=== PATIENT | male | born 1990 | race Two or more races ===

== ENCOUNTER 2023-06-26 10:10 | Day surgery (SDC) | payer BC ==
[2023-06-25 10:13] LABS: Urine WBC None Seen /hpf (0 - 3)
[2023-06-25 10:28] LABS: Basophils # (auto) 0 10 ^3/uL (0-0.2); Basophils % (auto) 0.6 % (0.0-2.0); Eosinophils # (auto) 0.2 10 ^3/uL (0-0.8); Eosinophils % (auto) 3.4 % (0.0-7.0); Hemoglobin 16.1 g/dL (13.5-17.5); Lymphocytes # (auto) 2.2 10 ^3/uL (0.4-5.4); Lymphocytes % (auto) 38.2 % (10.0-50.0); Mean Corpuscular Hemoglobin 30.5 pg (28.0-32.0); Mean Corpuscular Hgb Conc. 33.5 g/dL (32.0-36.0); Monocytes # (auto) 0.7 10 ^3/uL (0-1.3); Monocytes % (auto) 11.9 % (0.0-12.0); Neutrophils # (auto) 2.7 10 ^3/uL (1.6-8.6); Neutrophils % (auto) 45.9 % (37.0-80.0); Nucleated Red Blood Cells % 0.1 %; Red Blood Cells 5.27 10^6/uL (4.5-5.90); Red Cell Distribution Width 12.9 % (11.8-14.3); White Blood Cell 5.9 10^3/uL (4.4-10.8)
[2023-06-25 10:44] LABS: INR 1.09 (0.9-1.15); Partial Thromboplastin Time 30.4 SEC (24.5-34.5); Prothrombin Time 11.4 sec (9.3-11.8)
[2023-06-25 10:46] LABS: Urine Bacteria NONE SEEN /hpf (None Seen); Urine Blood Negative /uL (Negative); Urine Clarity Clear (Clear); Urine Protein, UAD Negative (Negative); Urine Specific Gravity 1.021 (1.001-1.035); Urine Urobilinogen Normal (Negative)
[2023-06-25 10:53] LABS: Urine Color Straw (Yellow)
[2023-06-25 10:56] LABS: Alanine Aminotransferase 36 U/L (7-40); Alkaline Phosphatase 76 U/L (46-116); Anion Gap 4 (5-15); BUN/Creatinine Ratio 14.6 (10.0-20.0); Blood Urea Nitrogen 12 mg/dL (9-23); Calcium 9.9 mg/dL (8.5-10.1); Carbon Dioxide 28 mmol/L (20-30); Chloride 108 mmol/L (98-107); Glucose 106 mg/dL (74-106); Potassium 4.4 mmol/L (3.5-5.1); Sodium 140 mmol/L (136-145)
[2023-06-25 10:57] LABS: Albumin 4.7 g/dL (3.2-4.8); Aspartate Aminotransferase 28 U/L (13-40); Bilirubin, Total 1.1 mg/dL (0.2-1.0); Total Protein 7.7 g/dL (5.7-8.2)
[~2023-06-26] VITALS: Ht 175.3 cm; Wt 68.0 kg
[~2023-06-26 10:10] MED LIST: DexAMETHasone SOD PHOS 10MG/1ML VIAL INJ ONE; GLYCOPYRROLATE 0.2 MG/ML 1ML VIAL ONE; KETOROLAC TROMETH 30 MG/ML 1ML VIAL ONE; ONDANSETRON HCL 4 MG/2 ML VIAL ONE; PROPOFOL 10 MG/ML 20 ML IV ONE
[2023-06-26] MEDS ORDERED: ceFAZolin 2 GM/D5W100ml 100 ML IV ONE (11:18)
[2023-06-26] MEDS ORDERED: BUPIVACAINE 0.5% P/F INJ 10 ML VIAL ONE (11:56)
[2023-06-26] MEDS ORDERED: LIDOCAINE W/ EPINEPHRINE 1% 20ML VIAL ONE (11:56)
[2023-06-26] MEDS ORDERED: GABAPENTIN 400 MG CAP PO ONE (12:00)
[2023-06-26] MEDS ORDERED: ACETAMINOPHEN IV 1000 MG/100ML (10MG/ML) IV ONE (12:00)
[2023-06-26] MEDS ORDERED: CELECOXIB 100 MG CAP PO ONE (12:00)
[2023-06-26] MEDS ORDERED: ACETAMINOPHEN IV 100 ML IV ONE (12:06)
[2023-06-26] MEDS ORDERED: CELECOXIB 100 MG CAP ONE (12:06)
[2023-06-26] MEDS ORDERED: GABAPENTIN 400 MG CAP ONE (12:06)
[2023-06-26] MEDS ORDERED: PROPOFOL 10 MG/ML 20 ML IV ONE ×4 (12:24→13:09)
[2023-06-26] MEDS ORDERED: KETAMINE 50mg/ML 1ml syringe ONE (12:25)
[2023-06-26 13:19] VITALS: TEMP 98.8; O2SAT 99
[2023-06-26] MEDS ORDERED: LABETALOL HCL 5 MG/ML 4ML SYRINGE IV PRN (13:45)
[2023-06-26] MEDS ORDERED: ePHEDrine SULFATE 50 MG/ML AMP IV PRN (13:45)
[2023-06-26] MEDS ORDERED: HYDROmorphone HCL 2 MG/ML VL/or syr IV PRN (13:45)
[2023-06-26] MEDS ORDERED: FLUMAZENIL 0.1 MG/ML INJ 10ML MDV IV PRN (13:45)
[2023-06-26] MEDS ORDERED: fentaNYL CITRATE 100 MCG/2 ML VL IV PRN (13:45)
[2023-06-26] MEDS ORDERED: hydrALAZINE HCL 20 MG/ML VL IV PRN (13:45)
[2023-06-26] MEDS ORDERED: oxyCODONE HCL 5MG TAB PO PRN (13:45)
[2023-06-26] MEDS ORDERED: ONDANSETRON HCL 4 MG/2 ML VIAL IV PRN (13:45)
[2023-06-26] MEDS ORDERED: NALOXONE HCL 0.4 MG/ML VIAL IV PRN (13:45)
[2023-06-26] MEDS ORDERED: HYDROmorphone HCL 2 MG/ML VL/or syr ONE (13:48)
[2023-06-26 14:22] VITALS: BP 112/69; PULSE 55; RESP 17; O2SAT 97
== END 2023-06-26 14:35 | disposition home or self-care (01) ==
LOC: SUR 10:10
PROVIDERS: ATTEND Surgery
DX: K40.90 Unilateral inguinal hernia, without obstruction or gangrene, not specified as recurrent (principal)
CPT/HCPCS: 36415; 49505; 80053; 81001; 85025; 85610; 85730; 86850; 86900; 86901; C1781; J0131; J1100; J1170; J1885; J2405; J2704; J3490